=== PATIENT | female | born 1985 | race Caucasian/White ===

== ENCOUNTER 2020-08-24 06:39 | Emergency (ER) | payer OTHER ==
[~2020-08-24] VITALS: Ht 160 cm; Wt 61.8 kg
[2020-08-24] MEDS ORDERED: ACETAMINOPHEN 500 MG TABLET PO ONE (07:45)
[2020-08-24] MEDS ORDERED: IBUPROFEN 600 MG TABLET PO ONE (07:45)
[2020-08-24 08:55] VITALS: BP 161/86
== END 2020-08-24 09:19 | disposition home or self-care (01) ==
LOC: EMS 06:44
DX: S62.612A Displaced fracture of proximal phalanx of right middle finger, initial encounter for closed fracture (principal); F17.210 Nicotine dependence, cigarettes, uncomplicated; F12.90 Cannabis use, unspecified, uncomplicated; S60.221A Contusion of right hand, initial encounter; W19.XXXA Unspecified fall, initial encounter; Y93.89 Activity, other specified; Y92.89 Other specified places as the place of occurrence of the external cause; Y99.8 Other external cause status
CPT/HCPCS: 99283

== ENCOUNTER 2020-10-31 11:34 | Emergency (ER) | payer OTHER, MEDICAID ==
[~2020-10-31] VITALS: Ht 157.5 cm; Wt 68.2 kg
[2020-10-31 11:36] VITALS: BP 143/80
[2020-10-31] MEDS ORDERED: MUPIROCIN CALCIUM 2% 22 GM OINTMENT TP ONE (13:30)
== END 2020-10-31 14:08 | disposition home or self-care (01) ==
LOC: EMS 11:50
DX: S80.01XA Contusion of right knee, initial encounter (principal); J45.909 Unspecified asthma, uncomplicated; F17.210 Nicotine dependence, cigarettes, uncomplicated; F12.90 Cannabis use, unspecified, uncomplicated; Z88.5 Allergy status to narcotic agent; Z88.8 Allergy status to other drugs, medicaments and biological substances; W19.XXXA Unspecified fall, initial encounter; Y93.89 Activity, other specified; Y92.89 Other specified places as the place of occurrence of the external cause; Y99.8 Other external cause status
CPT/HCPCS: 99283

== ENCOUNTER 2020-12-03 08:52 | Emergency (ER) | payer OTHER, MEDICAID ==
[~2020-12-03] VITALS: Ht 160 cm; Wt 63.6 kg
[2020-12-03] MEDS ORDERED: FLUT1BLS9 IH (09:04)
[2020-12-03] MEDS ORDERED: ALBU8HFA IH (09:04)
[2020-12-03 09:15] VITALS: BP 138/104
== END 2020-12-03 09:53 | disposition home or self-care (01) ==
LOC: EMS 08:54
DX: M77.8 Other enthesopathies, not elsewhere classified (principal)
CPT/HCPCS: 99284; Z7502

== ENCOUNTER 2021-11-17 09:09 | Emergency (ER) | payer OTHER, MEDICAID ==
[~2021-11-17] VITALS: Ht 160 cm; Wt 86.4 kg
[~2021-11-17 09:09] MED LIST: ALBU8HFA IH; FLUT1BLS9 IH
[2021-11-17 10:36] VITALS: BP 146/86
== END 2021-11-17 11:17 | disposition home or self-care (01) ==
LOC: EMS 09:09
DX: S90.111A Contusion of right great toe without damage to nail, initial encounter (principal); F41.9 Anxiety disorder, unspecified; F32.9 Major depressive disorder, single episode, unspecified; J45.909 Unspecified asthma, uncomplicated; F12.90 Cannabis use, unspecified, uncomplicated; F17.210 Nicotine dependence, cigarettes, uncomplicated; Z88.8 Allergy status to other drugs, medicaments and biological substances; Z88.5 Allergy status to narcotic agent; W22.8XXA Striking against or struck by other objects, initial encounter; Y93.89 Activity, other specified; Y92.89 Other specified places as the place of occurrence of the external cause; Y99.8 Other external cause status
CPT/HCPCS: 99283